=== PATIENT | male | born 1980 | race Caucasian/White ===

== ENCOUNTER 2021-06-13 09:41 | Observation (INO) ==
[2021-06-13] MEDS ORDERED: SODIUM CHLORIDE 0.9% 1,000 ML IV STA (11:10)
[2021-06-13] MEDS ORDERED: ONDANSETRON 4 MG/2 ML VIAL IV STA (11:11)
[2021-06-13 11:42] LABS: Albumin 4.4 G/DL (3.4-5.0); Bilirubin,Total 0.7 MG/DL (0.20-1.00); Calcium 9.6 MG/DL (8.5-10.1); Osmolality,Calculated 275.8 MOS/KG (273-304); Potassium 4.2 MMOL/L (3.5-5.1)
[2021-06-13 11:48] LABS: Basophils # 0.1 10*3/uL (0.0-0.2); Basophils % 0.3 % (0.0-0.8); Eosinophils % 0.2 % (0.00-10.9); Hematocrit 52.4 VOL% (42.0-52.0); Hemoglobin 17.5 GM/DL (14.0-18.0); Immature Granulocytes % 0.4 %; Immature Granulocytes Absolute 0.08 #; Lymphocytes # 1.3 10*3/uL (1.4-4.0); Lymphocytes % 6.9 % (21.2-54.2); Mean Corpuscular HGB Conc 33.4 GM/DL (32-36); Mean Platelet Volume 10.2 FL (9.6-12.0); Monocytes % 3.5 % (1.7-12.7); Neutrophils % 88.7 % (38.7-73.9); Platelet Count 388 T/CUMM (130-400); Red Blood Count 6.09 MC/CUMM (3.8-5.5); Red Cell Distribution Width 12.6 % (9.3-17.3); White Blood Count 19.1 T/CUMM (4-12)
[2021-06-13 12:06] LABS: Glucose,Urine (UA) Negative (Negative); Protein,Urine Negative (Negative); Urine Appearance Clear (Clear); Urine Color Yellow (Yellow); Urine Specific Gravity >= 1.030 (1.001-1.035); Urine pH 5.5 (4.5-8.0)
[2021-06-13 12:07] LABS: Bilirubin,Urine Negative (Negative); Blood, Urine Trace mg/dL (Negative); Ketones,Urine Trace mg/dL (Negative); Nitrite,Urine Negative (Negative); Urine Urobilinogen 0.2 eU/dL (<2.0)
[2021-06-13] MEDS ORDERED: ACETAMINOPHEN 325 MG TABLET PO PRN (13:44)
[2021-06-13] MEDS ORDERED: ONDANSETRON 4 MG/2 ML VIAL IV PRN (13:44)
[2021-06-13] MEDS: PIPERACILLIN/TAZOBACTAM 3,375 MG in SODIUM CHLORIDE 0.9% 100 ML IV SCH ×2 (15:47→23:18)
[2021-06-13] MEDS ORDERED: MORPHINE 2 MG/1 ML SYRINGE IV STA (17:06)
[2021-06-13] MEDS ORDERED: MORPHINE 2 MG/1 ML SYRINGE ONE (17:09)
[2021-06-14] MEDS ORDERED: INDOCYANINE GREEN 25 MG VIAL IV ONE (06:00)
[2021-06-14] MEDS ORDERED: ROCURONIUM 50 MG/5 ML VIAL IV ONE (06:28)
[2021-06-14] MEDS ORDERED: propofoL 200 MG/20 ML VIAL IV ONE (06:28)
[2021-06-14] MEDS ORDERED: ONDANSETRON 4 MG/2 ML VIAL ONE (06:28)
[2021-06-14] MEDS ORDERED: fentaNYL 250 MCG/5 ML VIAL ONE (06:28)
[2021-06-14] MEDS ORDERED: LIDOCAINE 2% 5 ML VIAL ONE (06:28)
[2021-06-14] MEDS ORDERED: MIDAZOLAM 2 MG/2 ML VIAL ONE (06:28)
[2021-06-14] MEDS ORDERED: SEVOFLURANE 1 UNIT/15 MINUTE INH ONE (06:28)
[2021-06-14] MEDS ORDERED: LIDOCAINE 1%/EPI INJ 20 ML VIAL ONE (06:34)
[2021-06-14] MEDS ORDERED: BUPIVACAINE MPF 0.25% 30 ML VIAL ONE (06:34)
[2021-06-14] MEDS ORDERED: TISSUE ADHESIVE 1 EACH APPLICATOR TOP ONE (06:34)
[2021-06-14] MEDS ORDERED: PHENYLEPHRINE 1 MG/10 ML SYRINGE IV ONE (06:36)
[2021-06-14] MEDS: PIPERACILLIN/TAZOBACTAM 3,375 MG in SODIUM CHLORIDE 0.9% 100 ML IV SCH (06:49)
[2021-06-14] MEDS ORDERED: SCOPOLAMINE 1.5 MG PATCH TRANSDERM ONE (07:12)
[2021-06-14] MEDS ORDERED: ACETAMINOPHEN INJ 1,000 MG/100 ML VIAL IV ONE (07:48)
[2021-06-14] MEDS ORDERED: PHENYLEPHRINE 10 MG/1 ML VIAL IV ONE (08:30)
[2021-06-14] MEDS ORDERED: GLYCOPYRROLATE 0.4 MG/2 ML VIAL ONE (08:30)
[2021-06-14] MEDS ORDERED: NEOSTIGMINE 10 MG/10 ML VIAL ONE (08:31)
[2021-06-14] MEDS ORDERED: LACTATED RINGERS 1,000 ML IV ONE (08:37)
[2021-06-14] MEDS ORDERED: PANTOPRAZOLE 40 MG TABLET PO SCH (09:00)
[2021-06-14 12:43] VITALS: BP 151/72
== END 2021-06-14 13:45 | disposition home or self-care (01) ==
LOC: N.ED 09:41 → OBSVTOIN 13:44 → N.EDINP 13:44 → INTOOBSV 13:44 → N.3E 17:51 → UNDODISOB 06-14 13:45
PROVIDERS: ADMIT Surgery; ATTEND Surgery